=== PATIENT | female | born 1995 | race Two or more races ===

== ENCOUNTER 2022-11-29 07:32 | Emergency (ER) | payer BC ==
[~2022-11-29] VITALS: Ht 160 cm; Wt 134.3 kg
== END 2022-11-29 12:21 | disposition home or self-care (01) ==
LOC: ER 07:32
DX: S33.9XXA Sprain of unspecified parts of lumbar spine and pelvis, initial encounter (principal); W18.39XA Other fall on same level, initial encounter; Y93.89 Activity, other specified; Y92.89 Other specified places as the place of occurrence of the external cause